=== PATIENT | male | born 1950 | race Caucasian/White ===

== ENCOUNTER 2018-01-02 11:00 | Outpatient (RCR) | payer MEDICARE | END 2018-01-09 | disposition home or self-care (01) | LOC: WSOT | DX: Z47.81 Encounter for orthopedic aftercare following surgical amputation (principal); Z89.202 Acquired absence of left upper limb, unspecified level | CPT/HCPCS: G8987-GO; G8988-GO ==

== ENCOUNTER 2018-01-15 08:26 | Outpatient (RCR) | payer MEDICARE | END 2018-01-21 08:27 | disposition home or self-care (01) | LOC: WSOT 08:26 | DX: Z47.81 Encounter for orthopedic aftercare following surgical amputation (principal); Z89.022 Acquired absence of left finger(s) | CPT/HCPCS: G8988-GO; G8989-GO ==

== ENCOUNTER → 2018-04-16 | Outpatient (CLI) | payer MEDICARE | LOC: COL.RAD 07:14 | DX: Z13.6 Encounter for screening for cardiovascular disorders (principal); I70.0 Atherosclerosis of aorta ==